=== PATIENT | female | born 2000 | race Caucasian/White ===

== ENCOUNTER 2021-12-23 11:34 | Day surgery (SDC) | payer BC, OTHER ==
[2021-12-23] MEDS ORDERED: Bupivacaine 0.25% 10 ML VIAL ONE (11:39)
[2021-12-23] MEDS ORDERED: Lidocaine 1% w/Epinephrine 1:100K 20 ML VIAL ONE (11:39)
[2021-12-23] MEDS ORDERED: Levofloxacin 500 mg/D5W 100 ml Premix Bag ONE (11:55)
[2021-12-23] MEDS ORDERED: Midazolam HCl 2 mg/2 ml Vial ONE (12:08)
[2021-12-23] MEDS ORDERED: fentaNYL Citrate/PF 100 MCG/2 ML SYRINGE ONE ×2 (12:13)
[2021-12-23] MEDS ORDERED: Succinylcholine 200 MG/10 ml SYRINGE FS ONE (12:18)
[2021-12-23] MEDS ORDERED: Rocuronium Bromide 10 MG/ML (10ML VIAL) ONE (12:18)
[2021-12-23] MEDS ORDERED: Ondansetron PF 4 MG/2 ML Vial ONE (12:18)
[2021-12-23] MEDS ORDERED: Dexamethasone 20 MG/5 ML VIAL ONE (12:18)
[2021-12-23] MEDS ORDERED: Ketorolac Tromethamine 30 MG/ML VIAL ONE (12:18)
[2021-12-23] MEDS ORDERED: PROPOFOL 200 MG/20 ML VIAL ONE (12:18)
[2021-12-23] MEDS ORDERED: Lidocaine 1% PF 5 ML VIAL ONE (12:18)
[2021-12-23] MEDS ORDERED: Fentanyl 100 MCG/2 ML VIAL ONE (13:31)
== END 2021-12-23 14:35 | disposition home or self-care (01) ==
LOC: SDC 11:34
PROVIDERS: ATTEND Surgery
PROC: 0DTJ4ZZ Resection of Appendix, Percutaneous Endoscopic Approach (ICD-10-PCS; principal; 2021-12-23)
DX: K35.30 Acute appendicitis with localized peritonitis, without perforation or gangrene (principal); K38.8 Other specified diseases of appendix; Z88.8 Allergy status to other drugs, medicaments and biological substances
CPT/HCPCS: 88304; A4649; C1776; J1100; J1885; J1956; J2250; J2405; J2704; J3010; S0020